=== PATIENT | female | born 1985 | race Caucasian/White ===

== ENCOUNTER 2021-08-02 15:51 | Emergency (ER) | payer OTHER ==
[~2021-08-02] VITALS: Ht 167.6 cm; Wt 68.0 kg
[2021-08-02] MEDS ORDERED: ADDERALL 10 MG10 MG PO (16:07)
[2021-08-02] MEDS ORDERED: ZOLOFT50 M1 PO (16:07)
[2021-08-02] MEDS ORDERED: XANAX 0.5 MG0.5 M1 PO (16:08)
[2021-08-02] MEDS ORDERED: BIRTH CONTROL (16:08)
[2021-08-02 17:59] LABS: URINE BILIRUBIN NEGATIVE (Negative); URINE BLOOD TRACE (Negative); URINE CLARITY CLEAR; URINE COLOR YELLOW; URINE GLUCOSE-RANDOM NEGATIVE (Negative); URINE KETONES NEGATIVE (Negative); URINE LEUKOCYTES NEGATIVE (Negative); URINE NITRITE NEGATIVE (Negative); URINE PROTEIN NEGATIVE (Negative); URINE UROBILINOGEN 0.2 E.U./dl (0.2-1.0)
[2021-08-02] MEDS ORDERED: HYDROCODON-ACE1 EAC7 PO (19:05)
[2021-08-02 19:16] VITALS: BP 129/89
== END 2021-08-02 19:17 | disposition home or self-care (01) ==
LOC: M.ERS 15:51
PROVIDERS: Physician Assistant
DX: S06.0X9A Concussion with loss of consciousness of unspecified duration, initial encounter (principal); Z79.899 Other long term (current) drug therapy; W10.8XXA Fall (on) (from) other stairs and steps, initial encounter; Y93.89 Activity, other specified; Y92.89 Other specified places as the place of occurrence of the external cause; Y99.8 Other external cause status